=== PATIENT | male | born 1965 | race Caucasian/White ===

== ENCOUNTER → 2021-05-30 11:04 | Outpatient (BNVA) | payer OTHER, SELFPAY | PROVIDERS: Family Provider Nurse Practitioner Family; PCP Nurse Practitioner Family; Visit Provider Nurse Practitioner Family | DX: M25.562 Pain in left knee (principal); G89.29 Other chronic pain | CPT/HCPCS: 73562 ==

== ENCOUNTER 2021-06-13 11:04 | Outpatient (CLI) | payer OTHER, SELFPAY ==
[2021-06-13 11:50] VITALS: BMI 30.7
--- NOTE | 2021-06-13 12:05 | ECG_ITS ---
[facility] Test Date: 2021-06-13 Pat Name: Jarek Nation Department: Room: Gender: Male Pbx Wire Chief: : 1965 Requested By: Swati Orellana Order Number: [id number] Ranjeet MD: EUNICE AHMADI Interpretive Statements NAME OF STUDY: TREADMILL STRESS TEST INDICATION: Chest Pressure, EXERCISE DATA: The patient was exercised by Nathaniel protocol. Baseline heart rate was 87 beats per minute. Baseline blood pressure was 137/77 millimeters of mercury. Target heart rate was 163 beats per minute. Maximum heart rate achieved was 170, which was 104 % of the target heart rate. Maximum blood pressure was 210/78 millimeters of mercury. Total exercise time was 9 minutes 51 seconds. Maximum METs achieved was 13.5, maximum VO2 was 47.3. The reason for ending the test was maximum effort achieved. The patient complained of shortness of breath during the stress test, which then resolved at the end of the test. ELECTROCARDIOGRAM: BASELINE: Showed sinus rhythm, normal axis, no significant ST-T changes at the baseline noted. EXERCISE: At the peak exercise level, no significant ST-T changes suggestive of ischemia noted. RECOVERY: During the recovery period, heart rate dropped appropriately. No significant ST-T changes in the recovery suggestive of ischemia noted. CONCLUSION: 1. Exercise capacity good. 2. Heart rate response was appropriate. 3. Blood pressure response was hypertensive 4. Symptoms not suggestive of ischemia. 5. Electrocardiogram portion of the stress test was not suggestive of ischemia. 6. Nuclear scan will be documented separately. Electronically Signed On 06-14-2021 20:34:32 CDT by EUNICE AHMADI [id number]
[2021-06-13 12:46] VITALS: BP 120/70; PULSE 96
== END 2021-06-13 11:05 | disposition home or self-care (01) ==
LOC: CDL 11:12
PROVIDERS: PCP Nurse Practitioner Family; Visit Provider Nurse Practitioner Family
DX: R07.89 Other chest pain (principal)
CPT/HCPCS: 93017

== ENCOUNTER → 2021-06-21 11:23 | Outpatient (BNVA) | payer OTHER, SELFPAY | PROVIDERS: PCP Nurse Practitioner Family; Referring Provider Nurse Practitioner Family; Visit Provider Orthopaedic Surgery | DX: M25.569 Pain in unspecified knee (principal); M47.897 Other spondylosis, lumbosacral region; M47.896 Other spondylosis, lumbar region | CPT/HCPCS: 72100 ==

== ENCOUNTER 2021-07-11 17:09 | Outpatient (CLI) | payer OTHER, SELFPAY ==
--- NOTE | 2021-07-11 17:30 | MR_ITS ---
WS: [id number] MRI LUMBAR SPINE NONCONTRAST HISTORY: M25.569 -back and knee pain. COMPARISON: Lumbar spine 06/21/2021 TECHNIQUE: Sagittal and axial multisequence imaging is submitted. 2 mm anterolisthesis of L4. No marrow edema or fracture. Very mild disc desiccation at L5-S1. Benign Schmorl's node at T12. Conus terminates normally at L1-2 disc level. L1-L2: Normal. L2-L3: Mild facet joint arthritis and ligamentum flavum arthritis. No significant stenosis. L3-L4: Mild annular disc bulging with mild ligamentum flavum and facet arthritis. There is very mild narrowing of the subarticular recesses and foramina. L4-L5: Diffuse moderate annular disc bulging and mild osteophytic ridging. Moderate to severe bilater al facet joint arthritis with ligamentum flavum arthritis. Degenerative changes at the facet joints a nd disc disease encroaching into the thecal sac. Mild central stenosis with moderate bilateral subart icular recess and foraminal stenosis. Stenosis is slightly greater on the LEFT. L5-S1: Diffuse annular disc bulge with a central disc protrusion. The disc protrusion is contacting a nd slightly displacing the LEFT S1 nerve root. Moderate narrowing of the LEFT subarticular recess wit h mild narrowing on the RIGHT. Mild bilateral foraminal stenosis due to disc and facet disease. MR/MR lumbar spine wo con* [id number] IMPRESSION: 1. LEFT paracentral disc protrusion contacts and slightly displaces the LEFT S 1 nerve root. 2. Moderate LEFT subarticular recess with mild RIGHT subarticular recess and m ild bilateral foraminal stenosis at L5-S1. 3. Moderate to severe bilateral facet joint arthritis at L4-5. Mild central wi th moderate bilateral subarticular recess and foraminal stenosis at L4-5. 4. Mild narrowing of the subarticular recesses and foramina at L3-4.
== END 2021-07-11 17:10 | disposition home or self-care (01) ==
LOC: RADSHAW 17:14
PROVIDERS: PCP Nurse Practitioner Family; Visit Provider Orthopaedic Surgery
DX: M53.3 Sacrococcygeal disorders, not elsewhere classified (principal); M48.061 Spinal stenosis, lumbar region without neurogenic claudication; M25.569 Pain in unspecified knee; M54.50 Low back pain, unspecified
CPT/HCPCS: 72148

== ENCOUNTER → 2021-08-17 10:35 | Outpatient (BNVA) | payer OTHER, SELFPAY | PROVIDERS: PCP Nurse Practitioner Family; Visit Provider Anesthesiology Pain Medicine | DX: M48.062 Spinal stenosis, lumbar region with neurogenic claudication (principal); M47.816 Spondylosis without myelopathy or radiculopathy, lumbar region; M51.16 Intervertebral disc disorders with radiculopathy, lumbar region; M79.604 Pain in right leg; M79.605 Pain in left leg | CPT/HCPCS: 99204 ==

== ENCOUNTER → 2021-08-24 13:46 | Outpatient (BNVA) | payer OTHER, SELFPAY | PROVIDERS: PCP Nurse Practitioner Family; Visit Provider Anesthesiology Pain Medicine | DX: M48.062 Spinal stenosis, lumbar region with neurogenic claudication (principal); M54.16 Radiculopathy, lumbar region | CPT/HCPCS: 62323; J1040; J3490 ==

== ENCOUNTER 2022-02-17 05:43 | Day surgery (SDC) | payer OTHER, SELFPAY ==
[2022-02-15 09:07] VITALS: BMI 30.8
[2022-02-17] VITALS (8 sets, daily range): BP systolic 106–152; BP diastolic 67–92; PULSE 61–93; RESP 14–20; TEMP 36.1–36.4; O2SAT 95–98
--- NOTE | 2022-02-17 | SCC_ITS ---
Procedure done: 1. L4/5 Laminectomy with partial facetectomy bilateral 9.1 seconds of fluoroscopic guidance, for a cumulative dose of 2.47 mGy, was provided to Dr. Ibanez by the radiology department. C-arm images of the lumbar spine were saved for the patient's permanent record. [facility]
--- NOTE | 2022-02-17 | XR_ITS ---
WS: [id number] INTRAOPERATIVE TECHNIQUE: 2 Spot fluoroscopic images for intraoperative purposes. FLUOROSCOPY TIME: 9.1 seconds CLINICAL INFORMATION: bilateral l4-l5 decompression COMPARISON: None. FINDINGS: Localization marker over the L4-L5 interspace XR/XR lumbar spine 1V [id number] IMPRESSION: Images obtained for intraoperative purposes.
--- NOTE | 2022-02-17 06:37 | P.ANESUD_ITS ---
Pre-Anesthetic Update Pre-Anesthetic Assessment: Date of Surgery/Procedure: 02/17/22 Preop Annia gnosis: Lumbar stenosis with neurogenic claudication Proposed Procedure: Operation Date: 02/17/22 07:00 Proposed Procedures p Lumbar Spine Decompression L4-5 wants to stand on left(Not Applicable) - Sumanth Ibanez, DO Any changes to Pre-Anesthetic Assessment?: No Last Intake: Intake Last Liquid Date 02/16/22 Last Liquid Time 20:00 Last Solid Date 02/16/22 Last Solid Time 14:00 Vitals: Temperature 97.6 F 02/17/22 06:02 Temperature Source Temporal Artery S can 02/17/22 06:02 Pulse Rate 93 02/17/22 06:02 Respiratory Rate 18 02/17/22 06:02 Blood Pressure 120/92 02/17/22 06:02 Blood Pressure Elisabeth n 101 02/17/22 06:02 Pulse Oximetry 97 02/17/22 06:02 Oxygen Delivery Me thod 02/17/22 06:09 Exam: Pre-Anes Outpt Exam: alert, oriented x 3, clear to auscultation bilaterally and regular rate & rhythm Cardiac Studies: No Data to Display
[2022-02-17] MEDS: sodium chloride 0.9% 1,000 ML 30 ML IV (06:44)
[2022-02-17] MEDS: midazolam 1 mg/mL INJ 2 mL 2 MG IVP (06:44)
--- NOTE | 2022-02-17 06:44 | W.PM.OPSUD ---
Surgery/Procedure H&P Update DATE OF PROCEDURE: February 17, 2022 DATE H&P PERFORMED: 01/19/22 H&P UPDATE INFORMATION: I have reviewed H&P completed within last 30 days, I have examined patient prior to procedure and No changes to prior documentation PREOP DIAGNOSIS: Lumbar stenosis with neurogenic claudication PLANNED PROCEDURE: Operation Date: 02/17/22 07:00 Proposed Procedures p Lumbar Spine Decompression L4-5 Dr wants to stand on left(Not Applicable) - Sumanth Ibanez, DO
--- NOTE | 2022-02-17 06:57 | ANES.PREANE2 ---
Pre-Anesthetic Assessment Height/Weight: Height 1.78 m Weight 97.522 kg Temp Pulse Resp BP Pulse Ox 97.6 F 93 18 120/92 97 02/17/22 06:02 02/17/22 06:02 02/17/22 06:02 02/17/22 06:02 02/17/22 06:02 Preop Diagnosis: Lumbar stenosis with neurogenic claudication Operation Date: 02/17/22 07:00 Proposed Procedures p Lumbar Spine Decompression L4-5 wants to stand on left(Not Applicable) - Sumanth Ibanez DO Familial anesthetic complications: none Was Beta Cynthia taken within 24 hours: N/A Was Clonidine taken within 24 hours: N/A Last intake: Intake Last Liquid Date 02/16/22 Last Liquid Time 20:00 Last Solid Date 02/16/22 Last Solid Time 14:00 Social Tobacco and No alcohol Exam alert, oriented x 3, clear to auscultation bilaterally and regular rate & rhythm Airway Submandibular: within normal limits Cervical ROM: within normal limits Mallampati: Class II Dentition: chipped Comments: Comments: Missing multiple teeth Pulmonary None reported CV/HEM None reported METS > 4 Stress test 05/2021 CONCLUSION: 1. Exercise capacity good. 2. Heart rate response was appropriate. 3. Blood pressure response was hypertensive 4. Symptoms not suggestive of ischemia. 5. Electrocardiogram portion of the stress test was not suggestive of ischemia. 6. Nuclear scan will be documented separately. None reported Hepatic None reported Metabolic None reported Musc/skel Osteoarthritis/DJD Neuropsych Neuropathy (Radiculopathy ) Anesthetic Plan ASA status: 2 Anesthesia: Anesthesia Evaluation and General Other: We discussed risk and benefits of general anesthesia including PONV, sore throat (sometimes severe), corneal abrasion, positioning and peripheral nerve injuries, life threatening allergic reaction, post operative ICU admission requiring prolonged intubation, stroke, heart attack, , and rare incidences of recall. Patient consents to proceed with general anesthesia. Risk of > 500 ml blood loss (7ml/kg in children): No Medications/Allergies Home Medications Medication Instructions Recorded Confirmed Last Taken Type alprazolam 0.25 mg tablet (Xanax) 0.25 mg PO BID 06/21/21 02/17/22 02/16/22 History tamsulosin 0.4 mg capsule 0.4 mg PO BEDTIME 06/21/21 02/17/22 02/16/22 History sildenafil (pulm.hypertension) 20 20 mg PO TID PRN 08/17/21 02/15/22 Unknown History mg tablet Allergies Allergy/AdvReac Type Severity Reaction Status Date / Time No Known Allergies Allergy Verified 01/19/22 14:49 Current Medications Generic Name Dose Route Start Last Admin Trade Name Freq PRN Reason Stop Dose Admin Sodium Chloride 1,000 mls @ 30 mls/hr 02/17/22 06:00 02/17/22 06:44 Sodium Chloride 0.9% IV 02/18/22 05:59 30 mls/hr .Q24H PO Administration Midazolam HCl 2 mg 02/17/22 05:49 02/17/22 06:44 Midazolam 1 Mg/Ml Inj 2 Ml IVP 2 mg Q5M PRN Administration Preop Anxiety PFSH Anesthesia Social History Smoking and tobacco status: never smoked Data Anesthesia Cardiac Studies: No Data to Display
--- NOTE | 2022-02-17 08:17 | PM.OP ---
Operative Report Date of procedure: February 17, 2022 Pre-op diagnosis: Preop Diagnosis Lumbar stenosis with neurogenic claudication Post-op diagnosis: same Procedure done: 1. L4/5 Laminectomy with partial facetectomy bilateral Surgeon: Sumanth Ibanez Estimated blood loss (mL): 5 Procedure: 1. L4/5 Laminectomy with partial facetectomy bilateral Patient is brought to the operative suite. After undergoing anesthesia they are placed in the prone position. All areas of impingement are well padded. Patient is then prepped and draped in the normal sterile fashion. A skin incision is made over the L4/5 level. This is confirmed under c-arm guidance. A series of dilators are passed and the tubular retractor is docked on the L4 lamina. A bovie is used to clear the soft tissue off the lamina and the L 4/5 facet joint. A high speed cherise is then used to perform the laminectomy and take down the medial aspect of the L 4/5 facet joint. A kerrison rongeure was then used to take down the remaining lamina and smooth the edged of the laminectomy up to the point where the ligamentum flavum attaches. Attention was then brought to the medial aspect of the facet joint. The remaining medial aspect of the superior and inferior aspect of the facet joint were taken down with the kerrison from the pedicle of L4 to L 5. The facet joint had significant hypertrophy. Attention was then brought to the Ligamentum Flavum. The ligament was taken down from the lamina of L4 to L5 and out medially to the remaining facet joint. The ligament was thick. The dura was then exposed. The dura was in good repair. The L4 nerve was then traced with a curette out the L4/5 foramen and found to be adequately decompressed. The L5 nerve was traced with a curette around the L5 pedicle. The lateral recess was opened with a kerrison helping to further decompress the L5 nerve. The tubular retractor was then tilted to the contralateral side. The bovie was used to take down the soft tissue on the spinous process. The high speed cherise was used to take down the spinous process and then the contralateral lamina of L4. The kerrison rongeur was used to take down the remaining lamina to the point where the ligamentum flavum attached and the ligamentum flavum was taken down from L4 to L5. The kerrison rongeur was then used to reach across and take down the medial aspect of the contralateral L4/5 facet joint.The currete was used to trace the contralateral L4 nerve out the L5 foramen to make sure it was decompressed adequatesly and the L5 was traced around the L5 pedicle. The lateral recess was opened further with the kerrison to ensure the L5 is adequately decompressed. Wound is then irrigated copiously with saline and surgiflo is used to stop any bleeding. The tubular retractor is removed and the wound is closed with vicryl and monocryl suture. Glue is then used to protect the wound. A sterile dressing is then placed. Patient was then placed in the supine position and transferred to the PACU in stable condition.
--- NOTE | 2022-02-17 10:30 | ANE.PACU2 ---
Inpatient post-anesthesia follow up: Airway intact: Yes Vital signs: Temperature 97.3 F Pulse Rate 61 Respiratory Rate 18 Blood Pressure 132/68 Pulse Oximetry 98 Oxygen Delivery Me thod Room Air Oxygen Flow Rate 8 Fraction of Inspir ed Oxygen Hydration adequate: Yes Nausea and vomiting: No Pain level: 1 Mental status: Baseline
== END 2022-02-17 09:30 | disposition home or self-care (01) ==
PROVIDERS: PCP Nurse Practitioner Family; Visit Provider Orthopaedic Surgery
PROC: (CPT 63005; principal; 2022-02-17 07:00)
DX: M48.062 Spinal stenosis, lumbar region with neurogenic claudication (principal)
CPT/HCPCS: 63047; 72020; 76000; J0330; J1100; J2250; J2405; J2704; J3010; J3490; J7030

== ENCOUNTER → 2023-08-03 07:50 | Outpatient (BNVA) | payer OTHER, SELFPAY | PROVIDERS: PCP Family Medicine; Visit Provider Family Medicine | DX: A93.8 Other specified arthropod-borne viral fevers (principal); G47.9 Sleep disorder, unspecified; R53.83 Other fatigue; Z13.6 Encounter for screening for cardiovascular disorders; E03.9 Hypothyroidism, unspecified; R79.89 Other specified abnormal findings of blood chemistry | CPT/HCPCS: 80053; 80061; 82040; 82607; 84270; 84403; 84443; 85025 ==

== ENCOUNTER → 2024-01-04 10:00 | Outpatient (BNVA) | payer OTHER, SELFPAY | PROVIDERS: PCP Family Medicine; Visit Provider Family Medicine | DX: R30.0 Dysuria (principal); R53.83 Other fatigue; G47.9 Sleep disorder, unspecified | CPT/HCPCS: 81000 ==

== ENCOUNTER → 2024-04-01 17:00 | Outpatient (BNVA) | payer OTHER, SELFPAY | PROVIDERS: PCP Family Medicine; Visit Provider Family Medicine | DX: M79.603 Pain in arm, unspecified (principal); R31.9 Hematuria, unspecified | CPT/HCPCS: 81000 ==

== ENCOUNTER → 2024-06-09 13:41 | Outpatient (BNVA) | payer OTHER, SELFPAY | PROVIDERS: PCP Family Medicine; Visit Provider Specialist | DX: M79.642 Pain in left hand (principal) | CPT/HCPCS: 73130 ==

== ENCOUNTER 2024-07-11 13:27 | Outpatient (CLI) | payer OTHER, SELFPAY ==
--- NOTE | 2024-07-11 13:45 | MR_ITS ---
WS: [id number] MRI LEFT HAND WITHOUT CONTRAST. COMPARISON: None Multiplanar, multisequence imaging is performed without contrast. History: Unable to pick things up with first and second fingers. Knife injury near the thenar eminenc e. There is a very small amount of fluid near the flexor pollicis longus tendon at the level of the firs t metacarpal. There is also a very small amount of edema within the muscle surrounding the flexor heron licis longus tendon. There is no fluid collection. The tendon does not appear to be completely ruptur ed. There is separation of the flexor pollicis longus tendon at the first IP joint but there is no campos rrounding fluid. 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 This also does not harjinder espond to the injury location. Moderate arthritic changes at the first metacarpal phalangeal joint. Radial and ulnar collateral liga ments appear intact. No destruction of the ceferino system within the remaining digits. Cystic soft tissue mass with adjacen t edema surrounding the fourth flexor digitorum profundus tendon at the level of the proximal metacar pal. The cystic mass measures 8 x 4 mm. There is fluid associated with the tendon. This may be a smal l ganglion. This is separate from the area of the reported injury. MR/MR hand LT wo con* [id number] IMPRESSION: 1. Very small amount of fluid associated with the tendon sheath of the flexor pollicis longus tendon at the level of the first metacarpal. The tendon itself appears to be intact. There is also a very small amount of adjacent edema withi n the muscle. No muscle tear or complete tendon tear. 2. Separation of the distal flexor pollicis longus tendon at the first IP join t consistent with a ceferino injury. There is no edema and I suspect this is prob ably a chronic injury. 3. Suspect small ganglion measuring 8 x 4 mm abutting the fourth flexor digito rum profundus tendon associated with the proximal metacarpal. There is a small amount of edema associated with this probable ganglion.
== END 2024-07-11 13:28 | disposition home or self-care (01) ==
LOC: RAD 13:31
PROVIDERS: PCP Family Medicine; Visit Provider Specialist
DX: S66.012A Strain of long flexor muscle, fascia and tendon of left thumb at wrist and hand level, initial encounter (principal); M71.342 Other bursal cyst, left hand; X58.XXXA Exposure to other specified factors, initial encounter
CPT/HCPCS: 73218